=== PATIENT | female | born 1965 | race Caucasian/White ===

== ENCOUNTER → 2016-12-24 | Outpatient (CLI) | payer OTHER ==
[~2016-12-24] MED LIST: ASPIRIN 81M81 MG/TA2 PO; EFFEXOR XR75 MG/CAP PO; EXCEDRIN1 TAB PO; FIORICET 325 MG1 TA1 PO; FLONASE NASAL S16 GM NS; JANUVIA 100MG100 MG PO; LIPITOR 10MG10 MG PO; LOTENSIN20 MG PO; MOBIC15 MG PO; NORVASC 10MG10 MG PO; PRILOSEC 20MG20 MG PO; PROBIOTIC FORMU1 CAP PO; TENORMIN 5050 MG/TAB PO; TRIAMCINOLONE0.11 TP; VESICARE 5MG5 MG PO; ZOFRAN8 MG PO; ZYRTEC 10MG10 MG PO
== END ==
LOC: COL.RAD 07:57
DX: K82.8 Other specified diseases of gallbladder (principal)
CPT/HCPCS: A9537; J2270

== ENCOUNTER → 2019-04-19 | Outpatient (CLI) | payer OTHER | LOC: COL.RAD 07:11 | DX: R14.0 Abdominal distension (gaseous) (principal); R68.81 Early satiety; R11.2 Nausea with vomiting, unspecified | CPT/HCPCS: A9541 ==

== ENCOUNTER 2019-10-18 11:58 | Day surgery (SDC) | payer OTHER ==
[2019-10-18] VITALS (11 sets, daily range): BP systolic 119–165; BP diastolic 83–104; PULSE 77–90; TEMP 98.3–98.7
[~2019-10-18] VITALS: Ht 162.6 cm; Wt 100.6 kg
[2019-10-18] MEDS ORDERED: PROZAC40 MG PO (12:26)
[2019-10-18] MEDS ORDERED: VESICARE10 MG PO (12:27)
[2019-10-18] MEDS ORDERED: JANUVIA 100MG100 MG PO (12:27)
[2019-10-18] MEDS ORDERED: TENORMIN 5050 MG/TAB PO (12:27)
[2019-10-18] MEDS ORDERED: ZYRTEC 10MG10 MG PO (12:27)
[2019-10-18] MEDS ORDERED: ULTRAM 50MG TAB50 MG PO (12:28)
[2019-10-18] MEDS ORDERED: NORVASC 5MG5 MG/TAB PO (12:28)
[2019-10-18] MEDS ORDERED: ROBAXIN 50500 MG/TAB PO (12:28)
[2019-10-18] MEDS ORDERED: PRILOTC PO (12:29)
--- NOTE | 2019-10-18 17:55 | NUR ---
Patient to room via bed from PACU. Alert and oriented, a little drowsy. Rates pain in abd 4/10, describes as sore. Lap sites x6 with all edges well approximated, no redness/swelling/discharge from any of the sites. Oriented to room. Remains on oxygen at 2L/NC at this time. Water and ice chips provided. Denies additional needs.
[2019-10-19 04:05] VITALS: BP 143/93; PULSE 82; TEMP 98.4
--- NOTE | 2019-10-19 04:29 | NUR ---
Patient has rested well throughout the night. Noted to have 6 lap sites that are open to air. No drainage noted. IVF continue to right wrist. Patient has had 4 jellos this shift, but does not want to eat anything else at this time. Pain level has been adequately controlled with current regimen. Continues on 2L via nasal cannula. Patient up to the bathroom with SBA from staff. Voiding well. Urine is clear and yellow. Denies any further needs. Will conitnue to monitor.
[2019-10-19 07:38] VITALS: BP 153/97; PULSE 77; TEMP 98.3
[2019-10-19 08:11] LABS: BASO % 0.2 % (0.0-2.0); GRAN # 9.4 (1.4-6.5); GRAN % 85.3 % (42.2-75.2); HEMATOCRIT 39.2 % (37.0-47.0); HEMOGLOBIN 12.8 g/dl (12.5-16.0); LYMPH # 1.1 (1.2-3.4); LYMPH % 10.1 % (20.0-51.0); MEAN CELL VOLUME 81 fl (80.0-100.0); MEAN CORPUSCULAR HEMOGLOBIN 27 pg (27.0-31.0); MEAN CORPUSCULAR HGB CONC 33 g/dl (33.0-37.0); MEAN PLATELET VOLUME 10.6 fl (7.4-10.4); MONO # 0.4 (0.1-0.6); MONO % 3.7 % (1.7-9.3); PLATELET COUNT 219 K/mm3 (130-400); RED BLOOD COUNT 4.83 M/mm3 (4.10-5.30); REDCELL DISTRIBUTION WIDTH-CV 14.6 % (11.5-14.5)
--- NOTE | 2019-10-19 08:24 | NUR ---
Lying in bed with eyes open watching TV. Rates pain in abd 2/10, describes as sore. Lap sites with all edges well approximated, no redness/swelling/discharge noted. Patient denies additional needs or concerns at this time.
[2019-10-19 08:34] LABS: CALCIUM 8.8 mg/dL (8.4-10.2); CREATININE, serum 0.62 (0.52-1.25); MAGNESIUM 1.7 mg/dL (1.6-2.3); PHOSPHOROUS 3.5 mg/dL (2.5-4.5); POTASSIUM 4.2 mmol/L (3.4-5.0)
--- NOTE | 2019-10-19 10:01 | NUR ---
Ambulate to end of hallway and back to room. Patient gait steady. Says that her pain with activity was like a sore stomach. Patient performs oral hygiene and sponge bath at this time. Encouraged patient to be out of bed as much as possible. Patient verbalizes understanding and denies additional needs.
--- NOTE | 2019-10-19 10:07 | NUR ---
Patient requests Tylenol to stay ahead of pain. Explain that it is too early to administer the Tylenol. Patient would like Tramadol at this time. Administered tramadol as prescribed. Patient sitting up in chair.
[2019-10-19] MEDS ORDERED: ULTRAM 50MG TAB50 MG PO (10:51)
[2019-10-19] MEDS ORDERED: ROXICODONE 55 MG/TAB PO (10:51)
[2019-10-19] MEDS ORDERED: NEURONTIN100 MG/CAP PO (10:52)
[2019-10-19 11:45] VITALS: BP 166/97; PULSE 71; TEMP 98.5
--- NOTE | 2019-10-19 13:26 | NUR ---
Reviewed all discharge instructions with the patient. Denies questions and signs discharge paperwork. Discharge packet provided to the patient. Patient assisted out to POV with all belongings by this nurse via wheel chair and spouse.
== END 2019-10-19 13:26 | disposition home or self-care (01) ==
LOC: SDCO 11:58 → SURG 17:58 → SDCO 10-19 13:26
PROVIDERS: Surgery
DX: K21.9 Gastro-esophageal reflux disease without esophagitis (principal); K44.9 Diaphragmatic hernia without obstruction or gangrene; K22.70 Barrett's esophagus without dysplasia; I10 Essential (primary) hypertension; E78.00 Pure hypercholesterolemia, unspecified; G47.33 Obstructive sleep apnea (adult) (pediatric); E11.9 Type 2 diabetes mellitus without complications; Z79.84 Long term (current) use of oral hypoglycemic drugs; Z20.828 Contact with and (suspected) exposure to other viral communicable diseases; Z79.899 Other long term (current) drug therapy; Z90.710 Acquired absence of both cervix and uterus; Z82.3 Family history of stroke; Z82.49 Family history of ischemic heart disease and other diseases of the circulatory system; Z91.048 Other nonmedicinal substance allergy status; F41.9 Anxiety disorder, unspecified
CPT/HCPCS: OP; J0690; J1100; J1650; J2405; J2704; J3010; J7030

== ENCOUNTER → 2019-12-01 | Outpatient (CLI) | payer OTHER ==
[~2019-12-01] MED LIST changes: +NEURONTIN100 MG/CAP PO; +NORVASC 5MG5 MG/TAB PO; +PRILOTC PO; +PROZAC40 MG PO; +ROBAXIN 50500 MG/TAB PO; +ROXICODONE 55 MG/TAB PO; +ULTRAM 50MG TAB50 MG PO; +VESICARE10 MG PO
== END ==
LOC: COL.RAD 13:47
DX: R11.10 Vomiting, unspecified (principal); Z98.890 Other specified postprocedural states

== ENCOUNTER → 2020-07-16 | Outpatient (CLI) | payer OTHER | LOC: COL.RAD 10:11 | DX: K21.9 Gastro-esophageal reflux disease without esophagitis (principal) ==